=== PATIENT | female | born 1980 | race Caucasian/White ===

== ENCOUNTER → 2023-07-22 | Outpatient (CLI) | payer OTHER, SELFPAY ==
[2023-07-22 17:51] LABS: Absolute Lymphocyte Count 2.72 X10^3/uL (0.83-4.51); Absolute Neutrophil Count 6.7 X10^3/uL (2.0-7.7); Basophil# 0.06 X10^3/uL; Basophil% 0.6 % (0-1); Eosinophil# 0.26 X10^3/uL; Eosinophils% 2.5 % (0-5); Hematocrit 39.6 % (37-47); Hemoglobin 13.4 g/dL (12.0-15.0); Lymphocyte # 2.72 X10^3/ul (0.83-4.51); Lymphocyte % 26.1 % (19-41); Mean Corp Hgb Conc 33.8 g/dL (32-36); Mean Corpuscular Hgb 32.1 pg (27.0-32.0); Mean Corpuscular Volume 94.7 fL (81-99); Mean Platelet Vol. 9.4 fl (6.2-12.0); Monocyte# 0.62 X10^3/uL; NRBC Flagged by Analyzer 0 % (0-5); Neutrophil # 6.73 X10^3/uL (2.7-7.7); Neutrophil % 64.5 % (47-70); Platelet Count 311 K/mm3 (150-450); RBC Distribution Width CV 12.3 % (11.6-14.6); RBC Distribution Width SD 42.9 fl (35.1-43.9); Red Blood Count 4.18 M/mm3 (4.2-5.4); White Blood Count 10.4 K/mm3 (4.4-11.0)
[2023-07-22 18:06] LABS: Hemoglobin A1c 4.9 % (3.8-5.6)
[2023-07-22 18:12] LABS: ALB/GLOB Ratio 1.1 RATIO (0.9-2.4); AST(SGOT) 14 U/L (15-37); Alanine Aminotransfer ALT/SGPT 36 U/L (13-56); Albumin, Serum 3.6 g/dL (3.2-5.0); Alkaline Phosphatase 75 U/L (45-117); Anion Gap 5 (5-15); BUN 12 mg/dL (7-18); BUN/Creat Ratio 12.4 RATIO (10-20); Calcium,Total 8.4 mg/dL (8.5-10.1); Chloride 110 mmol/L (98-107); Cholesterol 165 mg/dL (200); Creatinine, Serum 0.97 mg/dL (0.55-1.02); EST Glomerular Filtration Rate 67 mL/min (>60); Est Glom Filt Rate - Afr Amer 81 mL/min (>60); Globulin 3.3 g/dL (2.2-4.2); Glucose 107 mg/dL (74-106); High Density Lipoprotein 52 mg/dL; Potassium 3.8 mmol/L (3.5-5.1); Protein, Total 6.9 g/dL (6.4-8.2); Sodium Level 141 mmol/L (136-145); Thyroid Stim Hormone (TSH) 1.14 uIU/mL (0.358-3.74); Triglycerides 144 mg/dL; Very Low Density Lipoprotein 29 mg/dL (5-40)
== END | disposition home or self-care (01) ==
LOC: MFPLAB 15:59
PROVIDERS: PCP Family Medicine; Visit Provider Family Medicine
DX: Z13.228 Encounter for screening for other metabolic disorders (principal); Z13.220 Encounter for screening for lipoid disorders; Z13.0 Encounter for screening for diseases of the blood and blood-forming organs and certain disorders involving the immune mechanism; Z13.1 Encounter for screening for diabetes mellitus
CPT/HCPCS: 36415; 80053; 80061; 83036; 84443; 85025

== ENCOUNTER → 2025-03-07 | Outpatient (CLI) | payer OTHER, SELFPAY ==
--- NOTE | 2025-03-07 08:49 | US_ITS ---
PROCEDURE: BREAST LIMITED UNILATERAL 03/07/2025 REASON FOR EXAM: ABN MAMM TECHNIQUE: Targeted left breast ultrasound. COMPARISON: Prior mammogram done earlier in the day as well as February 23, 2025. FINDINGS: Left breast ultrasound was targeted to the medial and lateral aspect of the left breast.. There is a 6 mm x 6 mm x 3 mm hypoechoic nodular density with central vascularity at the 3 o'clock position of the breast at 12 cm from the nipple. This corresponds with the mammographic findings. This is not a typical lymph node. Tissue diagnosis recommended. There is also evidence of a 6 mm x 12 mm x 4 mm slightly irregular hypoechoic nodular density at the 8 o'clock position of the breast at 4 cm from the nipple. This is seen anterior to the implant. This may represent a fluid collection from the implant. MRI correlation recommended. US/Breast Limited Unilateral IMPRESSION: Impression: 6 mm x 6 mm x 3 mm hypoechoic nodule at the 3 o'clock position of t he breast at 12 cm from the nipple. This may represent an atypical lymph node. Biopsy recommended. Also evidence of a 6 mm x 12 mm x 4 mm anechoic structure anterior to the left breast implant. Correlation with MRI recommended. Birads: BI-RADS 4: SUSPICIOUS ABNORMALITY. Reading [id number]
--- NOTE | 2025-03-07 08:49 | BI_ITS ---
EXAM: DIAG MAMM W/CAD, BILAT 03/07/2025 CLINICAL HISTORY: F, Age 44 y/o , ABN MAMM TECHNIQUE: Bilateral Diagnostic digital breast tomosynthesis with 2D and 3D images. Computer aided detection. COMPARISON: Prior exam(s) dated February 23, 2025.. FINDINGS: TISSUE DENSITY: The breast tissue is heterogenously dense, which may obscure small masses. Bilateral Breast Mammographic Findings: Compression spot views of both breasts were obtained. Persistent 6 mm nodule in the central lateral aspect of the left breast. Correlation with ultrasound recommended. The right breast is unremarkable. Correlation with ultrasound recommended. BI/DIAG MAMM W/CAD, BILAT IMPRESSION: OVERALL FINAL ASSESSMENT: BIRADS 0 Incomplete: Need additional imaging evaluati on and/or prior mammograms for comparison.. RECOMMENDATION: Sonographic follow-up of the left breast. A letter with findings and recommendations will be mailed to the patient. Reading Location: [place] [id number]
== END | disposition home or self-care (01) ==
PROVIDERS: PCP Family Medicine; Referring Provider Nurse Practitioner Family; Visit Provider Nurse Practitioner Family
DX: R92.8 Other abnormal and inconclusive findings on diagnostic imaging of breast (principal)
CPT/HCPCS: 76642; 77062; 77066; G0279